=== PATIENT | female | born 1935 | race Caucasian/White ===

== ENCOUNTER 2020-08-25 11:22 | Day surgery (SDC) | payer MEDICARE, SELFPAY ==
[2020-08-25] VITALS (9 sets, daily range): BP systolic 133–166; BP diastolic 86–99; PULSE 83–114; RESP 12–22; TEMP 35.8–36.3; O2SAT 92–100; BMI 20.7
--- NOTE | 2020-08-25 11:58 | WPDANESEPPF ---
Anes - Initial Pre Proc Eval Procedure: Operation Date: 08/25/20 12:00 Proposed Procedures p Left Endoscopic Nasal Cauterization - Mehrdad Lock MD Date/Time: 08/25/20 11:58 Surgeon: Mehrdad Lock MD Pre Op Diagnosis: Epistaxis Patient Data Age: 85 Gender: F Height: 5 ft 9 in Weight: 63.7 kg Allergies Allergy/AdvReac Type Severity Reaction Status Date / Time No Known Allergies Allergy Verified 08/25/20 11:36 Home Medications Medication Instructions Recorded Confirmed Type aspirin 81 mg tablet,delayed 81 mg PO DAILY 08/21/20 08/25/20 History release calcium carbonate 500 mg calcium 500 mg PO DAILY 08/21/20 08/25/20 History (1,250 mg) chewable tablet cholecalciferol (vitamin D3) 125 125 mcg PO DAILY 08/21/20 08/25/20 History mcg (5,000 unit) capsule methenamine hippurate 1 gram tablet 1 gm PO BID 08/21/20 08/25/20 History metoprolol succinate 200 mg 200 mg PO DAILY 08/21/20 08/25/20 History capsule sprinkle, ext. release 24 hr warfarin 3 mg tablet 3 mg PO QMWF 08/21/20 08/25/20 History Patient hx anesthesia problems: none Family hx anesthesia problems: none PMFSH Past Medical History Medical History (Updated 08/25/20 @ 11:59 by Giorgi Dunne MD) Breast cancer Chronic a-fib Epistaxis Mitral valve regurgitation Pacemaker Surgical History Surgical History (Updated 08/25/20 @ 12:00 by Giorgi Dunne MD) H/O left mastectomy History of mitral valve repair Family History Family History Other Malignant neoplasm of prostate Social History Social History Smoking status: Never smoker Anes - Eval Final PreProcedure Day of Procedure 08/25/20 11:58 Patient weight: normal Heart: regular rate and rhythm Lungs: clear to auscultation Airway: Mallampati scale class II Neurological: alert and oriented Last oral intake: 4 hours ASA classification: III Emergent: yes Anesthetic plan: proceed Anesthesia type and monitoring: general ETT and standard monitoring Informed Consent: The patient's anesthetic plan and its attendant risks and benefits were discussed with the patient/family/POA. Questions were solicited and answers provided to the satisfaction of the patient/family/POA.
[2020-08-25 12:09] LABS: Hematocrit 45.6 % (37.0-47.0)
[2020-08-25 12:19] LABS: Prothrombin Time 30.2 Seconds (11.1-14.7)
[2020-08-25 12:20] LABS: Partial Thromboplastin Time 43.2 SECONDS (22.3-36.8)
--- NOTE | 2020-08-25 12:21 | PM.IMHP ---
H&P: HPI History of Present Illness Date/Time: 08/25/20 12:21 Chief complaint: Epistaxis Narrative: Federica Rico is a 85 year old female on coumadin with a history of epistaxis. Unable to control the bleeding in the clinic. The patient presents for operative intervention. Review of Systems Review of Systems: All systems reviewed & are unremarkable except as noted in HPI and below Constitutional: Constitutional: Denies fatigue, Denies fever(s) and Denies lethargy Eyes: Eyes: Denies blurry vision and Denies change in vision ENT: Reports as per HPI Cardiovascular: Cardiovascular: Denies chest pain Respiratory: Respiratory: Denies cough Endocrine: Endocrine: Denies fatigue Hematologic/Lymphatic: Hematologic/Lymphatic: Reports easy bleeding, Reports easy bruising and Denies lymphadenopathy Allergic/Immunologic: Allergic/Immunologic: Denies seasonal rhinorrhea PMF Past Medical History Medical History (Updated 08/25/20 @ 12:22 by Mehrdad Lock MD) Breast cancer Chronic a-fib Epistaxis Mitral valve regurgitation Pacemaker Surgical History Surgical History (Updated 08/25/20 @ 12:00 by Giorgi Dunne MD) H/O left mastectomy History of mitral valve repair Family History Family History Other Malignant neoplasm of prostate Social History Social History Smoking status: Never smoker Meds Home Medications and Allergies Home Medications Medication Instructions Recorded Confirmed Type aspirin 81 mg tablet,delayed 81 mg PO DAILY 08/21/20 08/25/20 History release calcium carbonate 500 mg calcium 500 mg PO DAILY 08/21/20 08/25/20 History (1,250 mg) chewable tablet cholecalciferol (vitamin D3) 125 125 mcg PO DAILY 08/21/20 08/25/20 History mcg (5,000 unit) capsule methenamine hippurate 1 gram tablet 1 gm PO BID 08/21/20 08/25/20 History metoprolol succinate 200 mg 200 mg PO DAILY 08/21/20 08/25/20 History capsule sprinkle, ext. release 24 hr warfarin 3 mg tablet 3 mg PO QMWF 08/21/20 08/25/20 History Allergies Allergy/AdvReac Type Severity Reaction Status Date / Time No Known Allergies Allergy Verified 08/25/20 11:36 Vital Signs Vital Signs - 24 hr 08/25/20 12:11 Temperature 35.8 C L Pulse Rate 83 Respiratory Rate 18 Blood Pressure 161/91 H Pulse Oximetry 92 Exam Const: General: cooperative, healthy appearing, comfortable, well developed and alert HENMT: Head: normal to inspection, normocephalic and atraumatic Ears: hearing grossly normal bilaterally, external ears normal, TM's normal bilaterally and EAC's normal General nose exam: Normal external nose present, Normal nares present and Other nasal findings present (Significant left sided epistaxis) Face and sinus: normal facial exam Mouth: Yes Normal oral and palatal mucosa present, Yes lip normal, Yes tongue normal, Yes oropharynx normal and Yes moist mucous membranes Teeth and gingiva: dentition normal and gingiva normal Throat: posterior oropharynx normal, tonsils normal and uvula midline Eyes: General: appearance normal, both eyes and all related structures Periorbital: periorbital findings normal Eyelids: eyelids normal Conjunctivae: conjunctivae normal Sclera: sclerae normal Neck: Neck: normal visual inspection, full ROM and no lymphadenopathy Thyroid: thyroid normal Lymphatic: no lymphadenopathy noted Resp: Effort & Inspection: normal respiratory effort and able to speak in complete sentences Cardio: Jugular venous distension: no JVD Neuro: Cranial nerves: Yes CN's II-XII intact bilaterally H&P: Results Labs Labs: Short CBC 08/25/20 Range/Units 12:04 Hgb 15.0 (12.0-15.0) g/dL Hct 45.6 (37.0-47.0) % Assessment and Plan Assessment and plan (1) Epistaxis: Code(s): R04.0 - Epistaxis Status: Acute Assessment and Plan: Plan is for OR
--- NOTE | 2020-08-25 12:23 | WPDHPUPDATE1 ---
History and Physical Update Update Date/Time: 08/25/20 12:23 History and Physical has been reviewed, including an updated exam of the patient. There are NO changes in the patient's condition. Risks, benefits, and alternatives have been discussed and questions answered. Patient agrees to proceed with procedure.
[2020-08-25] MEDS: LACTATED RINGERS 1,000 ML 30 ML IV CONT ×2 (12:25→13:59)
[2020-08-25] MEDS: OXYMETAZOLINE HCL 0.05% NAS 15 ML BTL (*BKC) 1 SPRAY NASAL (12:45)
[2020-08-25] MEDS: fentaNYL CITRATE INJ (*CRX) 100 MCG/2 ML VIAL 25 MCG IV PUSH (14:04)
--- NOTE | 2020-08-25 14:16 | PM.PROC ---
Procedure Note - Detailed Date of procedure: 08/25/20 Pre-op diagnosis: Epistaxis Post-op diagnosis: same Procedure performed: 1. Control of left anterior septal epistaxis 2. Left endoscopic maxillary antrostomy 3. Left endoscopic sphenopalatine artery ligation Description of procedure: The patient is correctly identified and consent was verified in the preoperative. Patient was then brought to operating room performed. General anesthesia was induced and endotracheal tube secured to the patient's airway and taped to the left lower lip. The patient was then prepped and draped for the aforementioned procedure. Nasal endoscopy was performed following the removal of the left-sided rhino rocket with no active bleeding noted. A Clayton was utilized to medialized the left middle turbinate and double ball tip probe was placed behind the uncinate process and used to fracture it anteriorly. Backbiter to the right was then utilized to perform uncinectomy. A straight through cup was utilized to widen the maxillary antrostomy into the posterior fontanelle and wall were located. A Clayton was then used to dissect until the Nithya ethmoidalis was identified. Bleeding obscured direct visualization of the sphenopalatine artery at this region was cauterized with the suction Bovie at a setting of 20. The left anterior septum was also cauterized with suction Bovie a setting of 10. Mucosal bleeding was noted following the procedure but no active arterial bleeding from the left anterior nasal septum or left sphenopalatine region was noted. Gelfoam was placed against the sphenoid palatine region. Blood was suctioned and the patient's stomach was suctioned as well. Rhino rocket was placed to be deflated and this marked the end of the procedure. Care of the patient was turned over to Anesthesiology. I performed all dictated portions of the procedure. Anesthesia: GLMA Surgeon: Mehrdad Lock MD Estimated blood loss (mL): 25 Complications: No immediate complications Condition: stable Disposition: PACU Findings: relatively controlled epistaxis cauterized anterior left nasal septum sphenopalatine artery region significantly cauterized
== END 2020-08-25 16:00 | disposition home or self-care (01) ==
PROVIDERS: Anesthesiology; PCP Internal Medicine; Visit Provider Otolaryngology
PROC: (CPT 31256; principal; 2020-08-25 12:00)
DX: R04.0 Epistaxis (principal); I48.20 Chronic atrial fibrillation, unspecified; I34.0 Nonrheumatic mitral (valve) insufficiency; Z95.0 Presence of cardiac pacemaker; Z85.3 Personal history of malignant neoplasm of breast; Z79.82 Long term (current) use of aspirin; Z79.01 Long term (current) use of anticoagulants
CPT/HCPCS: 31256; 31241; 36415; 85014; 85018; 85610; 85730; A9270; J0330; J2704; J3010; J7120

== ENCOUNTER 2021-04-11 13:16 | Outpatient (CLI) | payer MEDICARE, SELFPAY ==
--- NOTE | ~2021-04-11 | MM_ITS ---
EXAMINATION: MM screening [facility] BI w mehrdad HISTORY: Screening TECHNIQUE: Craniocaudal and mediolateral oblique 3-D tomosynthesis images were obtained and synthetic 2-D images were generated. CAD analysis was submitted and interpreted. COMPARISON: Comparison to multiple prior studies sequentially, with oldest reviewed study dated 05/14. BREAST PARENCHYMAL COMPOSITION: The breasts are extremely dense, which lowers the sensitivity of mamm ography. FINDINGS: Postsurgical changes are present consistent with previous left mastectomy with TRAM flap re construction. There is no evidence of suspicious mass, calcification, or architectural distortion to suggest malignancy in either breast. There has been no suspicious interval change. IMPRESSION: 1. No mammographic evidence of malignancy. 2. Recommend routine screening mammography in one year. BI-RADS Category 2: Benign finding(s). Reviewed, dictated and finalized at location A.
== END 2021-04-11 13:17 | disposition home or self-care (01) ==
LOC: ANHIMG 13:19
PROVIDERS: PCP Internal Medicine; Visit Provider Internal Medicine
DX: Z12.31 Encounter for screening mammogram for malignant neoplasm of breast (principal)
CPT/HCPCS: 77063; 77067

== ENCOUNTER 2021-05-02 09:51 | Inpatient (IN) | payer MEDICARE, SELFPAY ==
[2021-05-02] VITALS (11 sets, daily range): BP systolic 121–149; BP diastolic 60–86; PULSE 68–102; RESP 14–18; TEMP 36.2–36.8; O2SAT 95–100; BMI 21.2
--- NOTE | ~2021-05-02 | CT_ITS ---
EXAMINATION: CT abdomen pelvis w con EXAM DATE: 05/02/2021 11:46 INDICATION: Hematochezia, diarrhea. Dizziness. TECHNIQUE: Spiral CT of the abdomen and pelvis was performed following intravenous injection of 100 m L Omnipaque 350. Axial, coronal and sagittal images of the abdomen and pelvis were reviewed. The do se-length product (DLP) for this examination was 286.41 mGy-cm. The exposure was tailored according to patient size (auto mA exposure control), and iterative reconstruction (ASIR) was used as additiona l dose reduction technique. Comparison is made to prior examination from 11/19/2016. FINDINGS: Site of active bleeding is identified 5 cm proximal to the terminal ileum/cecal junction, w ith blood/contrast pooling in a diverticulum in the dependent aspect of the terminal ileum. Finding h as been indicated on axial image 108/174. Fluid within the colon probably blood. No small bowel dilat ion. Right-sided cardiac enlargement, severely distended right atrium. Right intraventricular pacemaker. T he IVC is dilated and there is mildly heterogeneous liver enhancement which could be from passive cyndee ous congestion due to right heart failure. There is 1.5 cm right liver dome cyst. The liver, spleen, adrenal glands and pancreas are unremarkable. Gallbladder is unremarkable. No biliary obstruction. Right kidney has horizontal orientation with patulous extrarenal pelvis and mild caliectasis, but no hydroureter or obstructing stones. Kidneys enhance symmetrically. No evidence of soft tissue at the r ight ureteropelvic junction to explain this. There is a left renal 1.4 cm cyst. The uterus is not id entified and has likely been surgically resected. 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 The bladder is unremarkable. There i s no retroperitoneal or pelvic lymphadenopathy. There is mild to moderate scattered arterioscleroti c disease. The appendix is normal. There is mild scattered colonic diverticulosis. There is no adjacent inflamm atory change to suggest diverticulitis. There is a 5 cm diverticulum along the jejunum proximally. No free intraperitoneal gas. The lung bases are unremarkable. Old right superior and inferior rami fractures. There are no osteoblastic or osteolytic lesions identified. IMPRESSION: 1. Terminal ileal active bleeding site identified. Diffuse colonic fluid, blood/diarrhea. 2. Distended right renal pelvis and mild caliectasis without obstructing etiology identified. 3. 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 4. Right-sided predominant cardiomegaly. Intraventricular pacer in position. 5. Heterogeneous liver enhancement probably passive congestion from right heart failure. 6. Scattered colonic, small bowel diverticulosis. Reviewed, dictated and finalized at location A. IMPRESSION: 1. Terminal ileal active bleeding site identified. Diffuse colonic fluid, bloo d/diarrhea. 2. Distended right renal pelvis and mild caliectasis without obstructing etiol ogy identified. 3. 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 4. Right-sided predominant cardiomegaly. Intraventricular pacer in position. 5. Heterogeneous liver enhancement probably passive congestion from right hear t failure. 6. Scattered colonic, small bowel diverticulosis.
--- NOTE | 2021-05-02 10:19 | PC.NURSE ---
placed in wheelchair, advised not to stand or ambulate without assistance.
[2021-05-02 10:39] LABS: Basophils Percent Auto 0.5 % (0.2-1.2); Eosinophils Absolute Auto 0.1 K/mm3 (0-0.3); Eosinophils Percent Auto 1.7 % (0-4.4); Hematocrit 40.6 % (37.0-47.0); Immature Granulocyte Absolute 0.02 K/mm3 (0.00-0.031); Immature Granulocyte Percent A 0.3 % (0-0.5); Lymphocytes Absolute Auto 1.17 K/mm3 (0.9-3.2); Lymphocytes Percent Auto 19.8 % (18.3-44.2); Mean Corpuscular Hemoglobin 29.5 pg (26-34); Mean Corpuscular Volume 92.3 fl (80-100); Mean Platelet Volume 9.2 fl (7.4-10.4); Monocytes Absolute Auto 0.4 K/mm3 (0.1-0.6); Monocytes Percent Auto 5.9 % (2.6-8.5); Neutrophils Absolute Auto 4.3 K/mm3 (1.3-6.7); Neutrophils Percent Auto 71.8 % (45.5-73.1); Platelet Count Result 214 k/mm3 (150-375); Red Cell Distribution Width 14.3 % (11.5-14.5); White Blood Count 5.9 K/mm3 (4.5-10.0)
[2021-05-02 10:49] LABS: Alanine Aminotransferase 12 U/L (4-35); Albumin Level 3.8 g/dL (3.5-5.1); Alkaline Phosphatase 78 U/L (38-126); Anion Gap 8 mmol/L (8-16); Aspartate Amino Transferase 24 U/L (14-36); Bilirubin,Total 0.7 mg/dL (0.2-1.3); Blood Urea Nitrogen 18 mg/dL (7-17); Calcium 8.6 mg/dL (8.4-10.2); Carbon Dioxide 26 mmol/L (22-30); Chloride 107 mmol/L (98-107); Estimated CRCL calculation 52 ml/min; Estimated Glomerular Filt Rate > 60; Glucose 115 mg/dL (65-105); INR 2.4; Potassium 4.3 mmol/L (3.4-5.0); Prothrombin Time 26.6 Seconds (11.1-14.7); Sodium 141 mmol/L (137-145)
[2021-05-02 10:50] LABS: Partial Thromboplastin Time 28.1 SECONDS (22.3-36.8)
--- NOTE | 2021-05-02 11:01 | ED.GIBLEED ---
HPI - GI Bleed General Chief complaint: GI Bleed Stated complaint: rectal bleeding Time Seen by Provider: 05/02/21 10:37 Source: patient Mode of arrival: wheelchair Limitations: no limitations History of Present Illness HPI Narrative: Patient presents to the emergency department for GI bleed present since this morning. Reports she woke up and felt like she needed to have a loose bowel movement. Noted dark red blood in her stool. Reports this happened 2 more times so she called her primary doctor who told her to come to the ER. Does report some abdominal discomfort. She is currently on warfarin. She did have to increase her dose a couple of days ago as she was subtherapeutic. Is back on her normal dose again. Denies fever, chest pain, shortness of breath, vomiting, dysuria, or hematuria. Related Data Home Medications Medication Instructions Recorded Confirmed aspirin 81 mg tablet,delayed 81 mg PO DAILY 08/21/20 08/25/20 release calcium carbonate 500 mg calcium 500 mg PO DAILY 08/21/20 08/25/20 (1,250 mg) chewable tablet cholecalciferol (vitamin D3) 125 125 mcg PO DAILY 08/21/20 08/25/20 mcg (5,000 unit) capsule methenamine hippurate 1 gram tablet 1 gm PO BID 08/21/20 08/25/20 metoprolol succinate 200 mg 200 mg PO DAILY 08/21/20 08/25/20 capsule sprinkle, ext. release 24 hr warfarin 05/02/21 Allergies Allergy/AdvReac Type Severity Reaction Status Date / Time No Known Allergies Allergy Verified 01/31/21 13:56 Review of Systems Review of Systems: Narrative: CONSTITUTIONAL: Denies fever. CARDIOVASCULAR: Denies chest pain RESPIRATORY: Denies dyspnea. GASTROINTESTINAL: Reports abdominal pain, diarrhea. Denies nausea or vomiting. GENITOURINARY: Denies dysuria or hematuria. All systems reviewed & are unremarkable except as noted in HPI and below PMFSH Past Medical History Medical History (Updated 05/02/21 @ 14:21 by Lynne Pillai PA-C) Breast cancer Chronic a-fib Epistaxis Mitral valve regurgitation Pacemaker Surgical History Surgical History (Updated 08/25/20 @ 12:00 by Giorgi Dunne MD) H/O left mastectomy History of mitral valve repair Family History Family History Other Malignant neoplasm of prostate Social History Social History (Updated 09/18/20 @ 13:13 by Rosette Villaseñor [employer]GER) Smoking status: Never smoker Second hand tobacco smoke exposure: No Alcohol intake: current Drinks per week: 3 Substance use: never Exam Narrative: Exam Narrative: GENERAL: Elderly, well-nourished, and in no acute distress. HEAD: Normocephalic, atraumatic. EYES: EOMI. CHEST: Clear to auscultation. No respiratory distress. No wheezes rales or rhonchi HEART: Regular rate and rhythm. No murmur heard. Normal peripheral pulses. ABDOMEN: Soft, nontender, nondistended, normal active bowel sounds. No CVA tenderness EXTREMITIES: Normal range of motion. No edema. SKIN: Warm, dry, no rash. NEURO: No focal deficits. Alert and oriented x3. PSYCH: Normal mood and affect RECTAL: Gross dark red blood in the rectum. No fissures or hemorrhoids are noted Course Consultations Consultation #1: Spoke with Dr. Abdi about patient and work-up who will consult. Would like patient's INR to be closer to 1.6 for colonoscopy. Date: 05/02/21 Time: 13:20 Consultation #2: Spoke with hospitalist about patient and work-up who accepts admission Date: 05/02/21 Time: 13:30 Vital Signs Vital signs: Vital Signs Temperature 97.2 F L 05/02/21 10:10 Pulse Rate 92 05/02/21 10:10 Respiratory Rate 14 05/02/21 10:10 Blood Pressure 144/75 H 05/02/21 10:10 Pulse Oximetry 98 05/02/21 10:10 Temperature 97.2 F L 05/02/21 10:10 Pulse Rate 100 05/02/21 13:55 Respiratory Rate 16 05/02/21 13:55 Blood Pressure 135/78 05/02/21 13:55 Pulse Oximetry 100 05/02/21 13:55 MDM - GI Bleed MDM Narrative Medical decision
[2021-05-02] MEDS: PHYTONADIONE ADULT INJ 10 MG in DEXTROSE 5% IN WATER 50 ML 100 MG IVPB (12:54)
--- NOTE | 2021-05-02 15:13 | ADMGEN ---
This patient, Federica Rico, was admitted to Medical Room 349-01. Patient/family oriented to hospital policies and general routines including ID bracelet, bed and alarms, visiting hours, pain management, procedures, bathroom and other care routines, personal items, smoking policy, room service/diet, and visiting hours. Information on how to activate the Rapid Response Team has been discussed. Patient/Family are encouraged to report perceived risks to care and to ask questions if they do not understand what they are told or what they should do.
--- NOTE | 2021-05-02 16:22 | WPDGICN ---
Assessment and Plan Assessment and plan (1) Acute GI bleeding: Code(s): K92.2 - Gastrointestinal hemorrhage, unspecified Status: Acute Assessment and Plan: will proceed with egd and colonoscopy (described some dark blood ? melena but also clots) therapeutic INR corrected with vit K, repeat again in the morning (2) Rectal bleeding: Code(s): K62.5 - Hemorrhage of anus and rectum Status: Acute (3) Chronic anticoagulation: Code(s): Z79.01 - correction (current) use of anticoagulants Status: Acute Assessment and Plan: coumadin on hold and given vit K ideally INR ~1.7 or less (4) Chronic a-fib: Code(s): I48.20 - Chronic atrial fibrillation, unspecified Status: Acute (5) Abnormal CT scan, colon: Code(s): R93.3 - Abnormal findings on diagnostic imaging of other parts of digestive tract Status: Acute Assessment and Plan: ? bleeding from right colon/TI scopes tomorrow monitor for more signs of bleeding and trend h/h GI Consult Note Consult date/time: 05/02/21 16:22 Reason for consult: rectal bleeding HPI: Federica Rico is a 85 year old female with chronic Afib for over 20 years, valve replacement (used to be on xarelto but last 2 years on coumadin), s/p pacemaker here with new onset of dark blood in stool x3 (large amount per patient), last time also noted clots. Had some mild lower abdominal cramping but no nausea or vomiting. She had her last colonoscopy about 7 years with polyp, it was done in [place]. INR 2.4, hb 13, bun 17, creat 0.7. CT scan reviewed and showed terminal ileal active bleeding site identified, right-sided predominant cardiomegaly. Intraventricular pacer in position, heterogeneous liver enhancement probably passive congestion from right heart failure, scattered colonic, small bowel diverticulosis. She is hemodynamically stable and received vit K in the ER. Her son is here. Review of Systems Constitutional: Constitutional: Denies chills Eyes: Eyes: Reports no additional eye complaints ENT: Reports Normal hearing present Cardiovascular: Cardiovascular: Denies chest pain Respiratory: Respiratory: Denies cough Gastrointestinal: Gastrointestinal: Denies nausea Genitourinary: Genitourinary: Denies hematuria Musculoskeletal: Musculoskeletal: Denies neck pain Integumentary/Breasts: Skin/Breast: Denies dry skin Neurologic: Denies headache(s) Psychiatric: Psychiatric: Denies behavioral changes [facility] Past Medical History Medical History (Updated 05/02/21 @ 16:27 by Abdirashid Abdi MD) Abnormal CT scan, colon Breast cancer Chronic a-fib Epistaxis Mitral valve regurgitation Pacemaker Rectal bleeding Surgical History Surgical History (Updated 08/25/20 @ 12:00 by Giorgi Dunne MD) H/O left mastectomy History of mitral valve repair Family History Family History (Updated 05/02/21 @ 16:04 by Kelin aKt RN) Father Malignant neoplasm of prostate Mother Aneurysm Other Breast cancer Social History Social History (Updated 09/18/20 @ 13:13 by Rosette Villaseñor CMA) Smoking status: Never smoker Second hand tobacco smoke exposure: No Alcohol intake: current Drinks per week: 1 Substance use: never Spiritual care concerns: No Meds Home Medications and Allergies Home Medications Medication Instructions Recorded Confirmed Type aspirin 81 mg tablet,delayed 81 mg PO DAILY 08/21/20 05/02/21 History release cholecalciferol (vitamin D3) 125 125 mcg PO DAILY 08/21/20 05/02/21 History mcg (5,000 unit) capsule methenamine hippurate 1 gram tablet 1 gm PO BID 08/21/20 05/02/21 History metoprolol succinate 200 mg 200 mg PO DAILY 08/21/20 05/02/21 History capsule sprinkle, ext. release 24 hr warfarin 3 mg PO USEASDIRECTD 05/02/21 05/02/21 History Allergies Allergy/AdvReac Type Severity Reaction Status Date / Time No Known Allergies Allergy Verified
[2021-05-02 16:35] LABS: Hematocrit 33.9 % (37.0-47.0)
--- NOTE | 2021-05-02 16:39 | PM.IMHP ---
H&P: HPI History of Present Illness Date/Time: 05/02/21 16:39Mariajose is a 85-year-old female patient who resides with her at [facility]. The patient has a history of atrial fibrillation and has been on Coumadin. Her INR was listed as 2.4. The patient came to the emergency room due to bright red rectal bleeding. She woke up this morning and she felt like she was could have loose stool. The patient has had continue with his liquid stools until she came to the hospital. However she did quantify that she had at least 6 watery stools that were dark black to Karen colored. She said that she had a colonoscopy many years ago maybe 7 years ago and she did have some polyps removed at that time. She had no abdominal discomfort she is wearing a depends at this time and there is Karen colored dark stool in her depends. GI has been consulted has already seen the patient. The CT is read as following 1.. Terminal ileal active bleeding site identified. Diffuse colonic fluid, blood/diarrhea. 2. Distended right renal pelvis and mild caliectasis without obstructing etiology identified. 3. 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 4. Right-sided predominant cardiomegaly. Intraventricular pacer in position. 5. Heterogeneous liver enhancement probably passive congestion from right heart failure. 6. Scattered colonic, small bowel diverticulosis. the patient did not give a urine sample as she has been on an antiseptic for frequent UTIs. She feels as though her urine would be positive but does not want to be treated live she has symptoms. Her urologist order not to continue to use antibiotics unless she is having symptoms. She is concerned about any super infections due to chronic antibiotic use. The patient stated that her urologist took 3 years to get her urine cleared and does not want to take any antibiotics if her urine shows something today. She is asymptomatic. The patient had vitamin K in the emergency room and it looks like maybe IV vitamin K as well. The patient is being admitted to observation status on 05/02/2021. Chief Complaint: gi bleed Review of Systems Review of Systems: All systems reviewed & are unremarkable except as noted in HPI and below Constitutional: Constitutional: Reports as per HPI and Reports no additional constitutional complaints Eyes: Eyes: Reports as per HPI and Reports no additional eye complaints ENT: Reports system reviewed and no additional complaints, except as documented and Reports Normal hearing present Cardiovascular: Cardiovascular: Reports no additional cardiovascular complaints Respiratory: Respiratory: Reports no additional respiratory complaints and Reports no additional respiratory complaints Gastrointestinal: Gastrointestinal: Reports as per HPI and Reports no additional gastrointestinal complaints Musculoskeletal: Musculoskeletal: Reports no additional musculoskeletal complaints Integumentary/Breasts: Skin/Breast: Reports system reviewed and no additional complaints, except as docu and Reports as per HPI Neurologic: Reports system reviewed and no additional complaints, except as documented, Reports as per HPI and Reports Normal hearing present Psychiatric: Psychiatric: Reports no additional psychiatric complaints and Reports as per HPI Endocrine: Endocrine: Reports no additional endocrine complaints Hematologic/Lymphatic: Hematologic/Lymphatic: Reports no additional hematologic/lymphatic complaints Allergic/Immunologic: Allergic/Immunologic: Reports no additional allergic/immunologic complaints [facility] Past Medical History Medical History (Updated 05/02/21 @ 16:49 by Nolvia Dupree NP) Abnormal CT scan, colon Breast cancer Chronic a-fib Epistaxis Mitral valve regurgitation Osteoporosis Pacemaker Rectal bleeding Surgical History Surgical History (Updated 05/02/21 @ 16:49 by Nolvia Dupree NP) H/O left mastectomy H/O: hysterectomy Hi
[2021-05-02] MEDS: polyethylene glycoL 3350 238 GM BOTTLE PO (17:28)
[2021-05-02] MEDS: BISACODYL 5 MG TABLET EC 20 MG PO (17:33)
--- NOTE | 2021-05-02 18:34 | PHAR ---
Home medication seen in pharmacy and returned to [facility]med unit. Methenamine 1gm tablets
[2021-05-02 19:39] LABS: INR 1.7; Prothrombin Time 20.1 Seconds (11.1-14.7)
[2021-05-02 22:23] LABS: Hematocrit 31.9 % (37.0-47.0); Hemoglobin 10.1 g/dL (12.0-15.0)
[2021-05-03] VITALS (15 sets, daily range): BP systolic 95–125; BP diastolic 49–65; PULSE 74–109; RESP 14–29; TEMP 36.4–36.9; O2SAT 96–100
[2021-05-03] MEDS: ONDANSETRON INJ 4 MG/2 ML VIAL IV PUSH (00:08)
[2021-05-03] MEDS: MAGNESIUM CITRATE 300 ML BTL PO (04:45)
[2021-05-03 05:35] LABS: Hematocrit 27.9 % (37.0-47.0); Hemoglobin 9.1 g/dL (12.0-15.0)
[2021-05-03 05:46] LABS: INR 1.2; Prothrombin Time 15.9 Seconds (11.1-14.7)
[2021-05-03 05:48] LABS: Anion Gap 5 mmol/L (8-16); Blood Urea Nitrogen 13 mg/dL (7-17); Calcium 7.8 mg/dL (8.4-10.2); Carbon Dioxide 24 mmol/L (22-30); Chloride 111 mmol/L (98-107); Estimated CRCL calculation 61 ml/min; Estimated Glomerular Filt Rate > 60; Glucose 106 mg/dL (65-105); Magnesium 1.9 mg/dL (1.6-2.3); Potassium 3.6 mmol/L (3.4-5.0); Sodium 140 mmol/L (137-145)
[2021-05-03 05:52] LABS: Lactic Acid Reflex 0.7 mmol/L (0.7-2.1)
--- NOTE | 2021-05-03 08:07 | WPDANESEPP ---
Anes - Eval Pre Procedure Procedure: Operation Date: 05/03/21 11:45 Proposed Procedures p Esophagogastroduodenoscopy & Colonoscopy - Abdirashid Abdi MD Date/Time: 05/03/21 08:07 Pre Op Diagnosis: gi bleed Patient Data Age: 85 Gender: F Height: 5 ft 9 in Weight: 65.1 kg Last Vital Signs Temp 98.5 F 05/03/21 05:58 Pulse 88 05/03/21 05:58 Resp 14 05/03/21 05:58 BP 104/57 L 05/03/21 05:58 Pulse Ox 98 05/03/21 05:58 Allergies Allergy/AdvReac Type Severity Reaction Status Date / Time No Known Allergies Allergy Verified 05/02/21 16:12 Home Medications Medication Instructions Recorded Confirmed Type aspirin 81 mg tablet,delayed 81 mg PO DAILY 08/21/20 05/02/21 History release cholecalciferol (vitamin D3) 125 125 mcg PO DAILY 08/21/20 05/02/21 History mcg (5,000 unit) capsule methenamine hippurate 1 gram tablet 1 gm PO BID 08/21/20 05/02/21 History metoprolol succinate 200 mg 200 mg PO DAILY 08/21/20 05/02/21 History capsule sprinkle, ext. release 24 hr warfarin 3 mg PO USEASDIRECTD 05/02/21 05/02/21 History Laboratory Tests 05/02/21 05/02/21 05/02/21 10:30 10:30 10:30 WBC 5.9 K/mm3 K/mm3 (4.5-10.0) RBC 4.40 M/mm3 M/mm3 (4.2-5.4) Hgb 13.0 g/dL g/dL (12.0-15.0) Hct 40.6 % % (37.0-47.0) MCV 92.3 fl fl (80-100) MCH 29.5 pg pg (26-34) MCHC 32.0 g/dl g/dl (32-36) RDW 14.3 % % (11.5-14.5) Plt Count 214 k/mm3 k/mm3 (150-375) MPV 9.2 fl fl (7.4-10.4) Immature Gran % (Auto) 0.3 % % (0-0.5) Neut % (Auto) 71.8 % % (45.5-73.1) Lymph % (Auto) 19.8 % % (18.3-44.2) Barron % (Auto) 5.9 % % (2.6-8.5) Eos % (Auto) 1.7 % % (0-4.4) Baso % (Auto) 0.5 % % (0.2-1.2) Lymph # (Auto) 1.17 K/mm3 K/mm3 (0.9-3.2) Barron # (Auto) 0.4 K/mm3 K/mm3 (0.1-0.6) Eos # (Auto) 0.1 K/mm3 K/mm3 (0-0.3) Baso # (Auto) 0.0 K/mm3 K/mm3 (0.0-0.1) Abs Immat Gran (auto) 0.02 K/mm3 K/mm3 (0.00-0.031) Absolute Neuts (auto) 4.3 K/mm3 K/mm3 (1.3-6.7) Absolute Nucleated RBC 0.0 K/mm3 K/mm3 (0.0-0.012) Nucleated RBC % 0.0 % % (0.0-0.2) PT 26.6 Seconds H Seconds (11.1-14.7) INR 2.4 APTT 28.1 SECONDS SECONDS (22.3-36.8) Sodium 141 mmol/L mmol/L (137-145) Potassium 4.3 mmol/L mmol/L (3.4-5.0) Chloride 107 mmol/L mmol/L (98-107) Carbon Dioxide 26 mmol/L mmol/L (22-30) Anion Gap 8 mmol/L mmol/L (8-16) BUN 18 mg/dL H mg/dL (7-17) Creatinine 0.70 mg/dL mg/dL (0.7-1.0) Estim Creat Clear Calc 52 ml/min ml/min Estimated GFR > 60 (59 - ) Glucose 115 mg/dL H mg/dL (65-105) Lactic Acid Calcium 8.6 mg/dL mg/dL (8.4-10.2) Magnesium Total Bilirubin 0.7 mg/dL mg/dL (0.2-1.3) AST 24 U/L U/L (14-36) ALT 12 U/L U/L (4-35) Alkaline Phosphatase 78 U/L U/L (38-126) Total Protein 6.0 g/dL L g/dL (6.3-8.2) Albumin 3.8 g/dL g/dL (3.5-5.1) TSH (Reflex) Blood Type Antibody Screen Antibody Identification Antigen Identification JAVY, IgG Interpret JAVY, Poly Interpret JAVY, Complement Interp 05/02/21 05/02/21 05/02/21 10:30 16:28 19:14 WBC RBC Hgb 11.0 g/dL L g/dL (12.0-15.0) Hct 33.9 % L % (37.0-47.0) MCV MCH MCHC RDW Plt Count MPV Immature Gran % (Auto) Neut % (Auto) Lymph % (Auto) Barron % (Auto) Eos % (Auto) Baso % (Au
--- NOTE | 2021-05-03 08:10 | ECG_ITS ---
Measurements Intervals Bern Rate: 102 P: MN: 0 QRS: -36 QRSD: 98 T: 74 QT: 361 QTc: 471 Interpretive Statements ATRIAL FIBRILLATION WITH RAPID VENTRICULAR RESPONSE LEFT AXIS DEVIATION INCOMPLETE RIGHT BUNDLE BRANCH BLOCK DELAYED PRECORDIAL R/S TRANSITION BORDERLINE ST-T WAVE ABNORMALITY- HIGH LATERAL LEADS ABNORMAL ECG Electronically Signed On 05-03-2021 8:42:03 CDT by Fabrice Suh D.O.
[2021-05-03] MEDS: METOPROLOL SUCCINATE EXT REL 100 MG TABCR 200 MG PO (08:59)
--- NOTE | 2021-05-03 11:00 | PC.NURSE ---
Pt to GI lab per edita jett at bedside. Report to TAMELA Bassett.
[2021-05-03] MEDS: LACTATED RINGERS 1,000 ML 150 ML IV CONT (11:22)
--- NOTE | 2021-05-03 11:34 | WPDANESEPPF ---
Anes - Initial Pre Proc Eval Procedure: Operation Date: 05/03/21 11:45 Proposed Procedures p Esophagogastroduodenoscopy & Colonoscopy - Abdirashid Abdi MD Date/Time: 05/03/21 11:34 Surgeon: Yuliana Rowley MD Pre Op Diagnosis: gi bleed Patient Data Age: 85 Gender: F Height: 5 ft 9 in Weight: 65.1 kg Last Vital Signs Temp 98.4 F 05/03/21 11:21 Pulse 95 05/03/21 11:21 Resp 16 05/03/21 11:21 BP 106/65 05/03/21 11:21 Pulse Ox 96 05/03/21 11:21 Allergies Allergy/AdvReac Type Severity Reaction Status Date / Time No Known Allergies Allergy Verified 05/03/21 11:05 Home Medications Medication Instructions Recorded Confirmed Type aspirin 81 mg tablet,delayed 81 mg PO DAILY 08/21/20 05/02/21 History release cholecalciferol (vitamin D3) 125 125 mcg PO DAILY 08/21/20 05/02/21 History mcg (5,000 unit) capsule methenamine hippurate 1 gram tablet 1 gm PO BID 08/21/20 05/02/21 History metoprolol succinate 200 mg 200 mg PO DAILY 08/21/20 05/02/21 History capsule sprinkle, ext. release 24 hr warfarin 3 mg PO USEASDIRECTD 05/02/21 05/02/21 History Laboratory Tests 05/02/21 05/02/21 05/02/21 10:30 16:28 19:14 Hgb 11.0 g/dL L g/dL (12.0-15.0) Hct 33.9 % L % (37.0-47.0) PT 20.1 Seconds H D Seconds (11.1-14.7) INR 1.7 Sodium Potassium Chloride Carbon Dioxide Anion Gap BUN Creatinine Estim Creat Clear Calc Estimated GFR Glucose Lactic Acid Calcium Magnesium TSH (Reflex) Blood Type O Positive Antibody Screen Positive Antibody Identification Anti-c Antigen Identification c Antigen - NEGATIVE JAVY, IgG Interpret Not Performed JAVY, Poly Interpret Negative JAVY, Complement Interp Not Performed 05/02/21 05/03/21 05/03/21 22:06 05:22 05:23 Hgb 10.1 g/dL L g/dL 9.1 g/dL L g/dL (12.0-15.0) (12.0-15.0) Hct 31.9 % L % 27.9 % L % (37.0-47.0) (37.0-47.0) PT INR Sodium Potassium Chloride Carbon Dioxide Anion Gap BUN Creatinine Estim Creat Clear Calc Estimated GFR Glucose Lactic Acid 0.7 mmol/L mmol/L (0.7-2.1) Calcium Magnesium TSH (Reflex) Blood Type Antibody Screen Antibody Identification Antigen Identification JAVY, IgG Interpret JAVY, Poly Interpret JAVY, Complement Interp 05/03/21 05/03/21 05/03/21 05:23 05:23 05:23 Hgb Hct PT 15.9 Seconds H D Seconds (11.1-14.7) INR 1.2 Sodium 140 mmol/L mmol/L (137-145) Potassium 3.6 mmol/L mmol/L (3.4-5.0) Chloride 111 mmol/L H mmol/L (98-107) Carbon Dioxide 24 mmol/L mmol/L (22-30) Anion Gap 5 mmol/L L mmol/L (8-16) BUN 13 mg/dL D mg/dL (7-17) Creatinine 0.60 mg/dL L mg/dL (0.7-1.0) Estim Creat Clear Calc 61 ml/min ml/min Estimated GFR > 60 (59 - ) Glucose 106 mg/dL H mg/dL (65-105) Lactic Acid Calcium 7.8 mg/dL L mg/dL (8.4-10.2) Magnesium 1.9 mg/dL mg/dL (1.6-2.3) TSH (Reflex) 1.030 uIU/mL uIU/mL (0.465-4.68) Blood Type Antibody Screen Antibody Identification Antigen Identification JAVY, IgG Interpret JAVY, Poly Interpret JAVY, Complement Interp Patient hx anesthesia problems: none Family hx anesthesia problems: none [facility]
[2021-05-03] MEDS: BENZOCAINE (*SP) 60 ML SPRAY CAN (HURRICAINE) 1 SPRAY MUCOUS MEM (11:54)
--- NOTE | 2021-05-03 12:20 | SUR.OPER ---
Resolution Clip Lot: [id number] Exp: 2023-10-05
--- NOTE | 2021-05-03 13:05 | PC.NURSE ---
Pt returned from GI lab per johnie. Family at bedside.
[2021-05-03] MEDS: CHOLECALCIFEROL 1,000 UNITS TABLET 5000 UNITS PO (13:52)
--- NOTE | 2021-05-03 14:27 | PM.IMPN ---
Progress Note: A&P Assessment and Plan (1) Acute GI bleeding: Code(s): K92.2 - Gastrointestinal hemorrhage, unspecified Status: Acute Assessment and Plan: Presented with dark red blood in stool. CT abdomen/ pelvis at presentation identified site of active bleeding at terminal ileum with suspected colonic blood with scattered diverticulosis. She underwent EGD and colonoscopy today by Dr. Verma. 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 This was clipped. Appreciate gastroenterology consultation advance diet monitor clinically Hold warfarin and aspirin (2) Acute blood loss anemia: Code(s): D62 - Acute posthemorrhagic anemia Status: Acute Assessment and Plan: Secondary to GI bleed as above. Hemoglobin 13.0 at presentation with decline down to 9.1 today but remaining stable. Mild lightheadedness, but otherwise asymptomatic. monitor H&H closely to ensure remaining stable. anticipate improvement as no longer actively bleeding transfuse as needed to stable hemoglobin >7.0 (3) Chronic a-fib: Code(s): I48.20 - Chronic atrial fibrillation, unspecified Status: Acute Assessment and Plan: Rate is controlled. 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 She received vitamin K prior to EGD and colonoscopy and INR was 1.2 this morning. Hold warfarin. Continue to hold for 5 days per GI recommendations. resume on 05/09/2021. (5) Gastritis: Code(s): K29.70 - Gastritis, unspecified, without bleeding Status: Acute Assessment and Plan: Evident on EGD with no evidence of bleeding. Begin daily protonix Subjective Date/time seen: 05/03/21 14:27 Interval history: Date of service: 05/03/2021 Federica Rico is an 85-year-old female with a history of chronic atrial fibrillation on warfarin, mitral valve regurgitation, and breast cancer who is seen in follow-up for GI bleeding. she is feeling fairly well, but does complain of lightheadedness. This has been persistent since presentation. Denies dizziness. She was able to ambulate to the bathroom with assistance without much difficulty. Denies weakness or significant fatigue. She does endorse palpitations which she states is constant for her. she denies shortness of breath. No chest pain. Earlier today she had a cramping abdominal pain, but this has resolved. She has not had any further episodes of bloody stool. She has been urinating without difficulty. She denies nausea, vomiting, fever, or chills. Denies headache or body aches. She has no other concerns at this time. Review of Systems Review of Systems: All systems reviewed & are unremarkable except as noted in HPI and below Exam Narrative: Exam Narrative: Ms Rico is a well-nourished, well-appearing 85-year-old female who is lying semi recumbent in bed. she appears comfortable and is in NARD. Neuro: awake, alert and oriented x4, speech clear, no focal neuro deficits noted HEENMT: normocephalic, atraumatic, EOMI, sclerae anicteric, moist oral mucosa, tongue midline, nares patent Neck: supple, no lymphadenopathy Respiratory: clear to auscultation bilaterally, nonlabored breathing Cardio: regular rate, regular rhythm with S1-S2 Abdomen: nondistended, normoactive bowel sounds, soft, nontender to palpation, no rigidity or guarding Extremities: no edema, erythema, cyanosis, clubbing, or tenderness to palpation, DP pulses 2+ bilaterally Skin: slight pallor, no rashes or lesions, warm and dry Psych: appropriate mood and affect, judgment and insight intact Objective Data Vital Signs Vital Signs: Vital Signs - 24 hr 05/02/21 15:13 05/02/21 15:25 05/02/21 19:55 Temperature 98.2
[2021-05-03 14:50] LABS: Hematocrit 31.3 % (37.0-47.0)
[2021-05-04] VITALS (13 sets, daily range): BP systolic 91–106; BP diastolic 44–62; PULSE 69–98; RESP 18–20; TEMP 36.5–37.2; O2SAT 97–100
[2021-05-04 06:51] LABS: Hematocrit 28.2 % (37.0-47.0)
--- NOTE | 2021-05-04 08:27 | WPDANESPN ---
Anes - Prog Note Post-Op Date/Time: 05/04/21 08:27 Cardiovascular status: normal Respiratory status: normal Airway patency: baseline Mental status: baseline Post-Op hydration status: normal Vital Signs: Last Vital Signs Temp 36.5 C 05/04/21 05:58 Pulse 88 05/04/21 08:02 Resp 18 05/04/21 05:58 BP 106/48 L 05/04/21 05:58 Pulse Ox 100 05/04/21 05:58 Pain Score (VAS): none I/O: Intake & Output 05/03/21 05/04/21 05/04/21 23:59 07:59 15:59 Intake Total 240 250 Balance 240 250 Laboratory Tests 05/04/21 06:40 05/03/21 05:23 05/03/21 05/04/21 14:46 06:40 Hgb 10.0 L 9.0 L Hct 31.3 L 28.2 L Post-procedural complaints: none Patient Feedback: Patient satisfied with anesthetic care.
[2021-05-04] MEDS: PANTOPRAZOLE SOD SESQUIHYDRATE 20 MG TAB PO (08:56)
[2021-05-04] MEDS: METOPROLOL SUCCINATE EXT REL 100 MG TABCR 200 MG PO (08:57)
[2021-05-04] MEDS: CHOLECALCIFEROL 1,000 UNITS TABLET 5000 UNITS PO (08:57)
[2021-05-04 13:01] LABS: Hemoglobin 8.6 g/dL (12.0-15.0)
--- NOTE | 2021-05-04 13:31 | PM.IMPN ---
Progress Note: A&P Assessment and Plan (1) Acute GI bleeding: Code(s): K92.2 - Gastrointestinal hemorrhage, unspecified Status: Acute Assessment and Plan: Presented with dark red blood in stool. CT abdomen/ pelvis at presentation identified site of active bleeding at terminal ileum with suspected colonic blood and scattered diverticulosis. She underwent EGD and colonoscopy by Dr. Verma on 05/03. 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 This was clipped. Still with bleeding per rectum but improving. Appreciate gastroenterology consultation monitor clinically Hold warfarin and aspirin (2) Acute blood loss anemia: Code(s): D62 - Acute posthemorrhagic anemia Status: Acute Assessment and Plan: Secondary to GI bleed as above. Hemoglobin 13.0 at presentation with steady decline. Hgb is 8.6 today. monitor H&H q6h ensure remaining stable. transfuse as needed to stable hemoglobin >7.0 or if symptomatic with further decline (3) Chronic a-fib: Code(s): I48.20 - Chronic atrial fibrillation, unspecified Status: Acute Assessment and Plan: Rate is controlled. Holding metoprolol succinate as BP is soft (4) Chronic anticoagulation: Code(s): Z79.01 - FDC (current) use of anticoagulants Status: Acute Assessment and Plan: On warfarin given chronic AFib. She received vitamin K prior to EGD and colonoscopy and INR was 1.2. Hold warfarin. Continue to hold for 5 days per GI recommendations. resume on 05/09/2021. (5) Gastritis: Code(s): K29.70 - Gastritis, unspecified, without bleeding Status: Acute Assessment and Plan: Evident on EGD with no evidence of bleeding. Begin daily protonix (6) Hypotension: Code(s): I95.9 - Hypotension, unspecified Status: Acute Assessment and Plan: BP down to 93/61 today. Likely secondary to hypovolemia given blood loss. Orthostatics negative. Metoprolol succinate on hold Monitor BP trends closely Fall precautions Subjective Date/time seen: 05/04/21 13:31 Interval history: Date of service: 05/03/2021 Federica Rico is an 85-year-old female with a history of chronic atrial fibrillation on warfarin, mitral valve regurgitation, and breast cancer who is seen in follow-up for GI bleeding. She still feels lightheaded today, especially with getting up and walking around. She is having dark red drips of blood per rectum still but notes this has lessened significantly. She has not had a bowel movement today. Reports mild abdominal cramping. No nausea or vomiting. No fever or chills. No shortness of breath, chest pain, or palpitations. She feels a bit weaker and more fatigued. She has been eating well. Review of Systems Review of Systems: All systems reviewed & are unremarkable except as noted in HPI and below Exam Narrative: Exam Narrative: Ms Rico is a well-nourished, well-appearing 85-year-old female who is lying semi recumbent in bed. She appears comfortable and is in NARD. Neuro: awake, alert and oriented x4, speech clear, no focal neuro deficits noted HEENMT: normocephalic, atraumatic, EOMI, sclerae anicteric, moist oral mucosa Respiratory: clear to auscultation bilaterally, nonlabored breathing Cardio: regular rate, regular rhythm with S1-S2 Abdomen: nondistended, normoactive bowel sounds, soft, nontender to palpation, no rigidity or guarding Extremities: no edema, erythema, cyanosis, clubbing, or tenderness to palpation, DP pulses 2+ bilaterally Skin: slight pallor, no rashes or lesions, warm and dry Psych: appropriate mood and affect, judgment and insight intact Objective Data Vital Signs Vital Signs: Vital Signs - 24 hr 05/03/21 14:00 05/03/21 16:00 05/03/21 20:00 Temperature 98.4 F Pulse Rate 89 74 76 Respiratory Rate 18 17 Blood Pressure 101/53
--- NOTE | 2021-05-04 13:41 | PC.NURSE ---
On 05/04/21, the student, [Becky Miller], provided care and [facility]. I have reviewed the student's documentation and agree with the findings.
--- NOTE | 2021-05-04 14:36 | WPDGIPROGNO ---
Progress Note: A&P Assessment and Plan (1) Diverticular hemorrhage: Code(s): K57.31 - Diverticulosis of large intestine without perforation or abscess with bleeding Status: Acute Assessment and Plan: found stigmata on bleeding from diverticula in ileum, treated with a clip hold coumadin for 1 week (2) Acute blood loss anemia: Code(s): D62 - Acute posthemorrhagic anemia Status: Acute Assessment and Plan: from diverticula bleed repeat cbc as outpatient start iron supplement (3) Gastritis: Code(s): K29.70 - Gastritis, unspecified, without bleeding Status: Acute Assessment and Plan: also noted gastritis, use low dose ppi daily (4) Chronic anticoagulation: Code(s): Z79.01 - residential (current) use of anticoagulants Status: Acute Assessment and Plan: on hold Subjective Date/time seen: 05/04/21 14:36 Interval history: no more bleeding, she is walking with assistance. Review of Systems Review of Systems: All systems reviewed & are unremarkable except as noted in HPI and below Exam Const: General: comfortable and no acute distress HENMT: General nose exam: Normal nares present Eyes: Pupils: Equal, round and reactive pupils present Neck: Neck: supple Resp: Auscultation: clear to auscultation bilaterally Cardio: Rate: regular rate GI: GI Palp: Yes Soft to palpation, No Tenderness to palpation present (GI) and No Guarding due to palpation present (GI) Auscultation: normal bowel sounds Skin: General skin exam: erythema Neuro: Speech: normal speech Motor exam (neuro): Normal motor muscle tone present throughout Extrem: General: normal to inspection Psych: Mental Status: mental status grossly normal Objective Data Vital Signs Vital Signs: Vital Signs - 24 hr 05/03/21 16:00 05/03/21 20:00 05/03/21 21:44 Temperature 97.6 F Pulse Rate 74 76 90 Respiratory Rate 17 17 Blood Pressure 99/51 L Pulse Oximetry 97 97 05/04/21 00:00 05/04/21 04:00 05/04/21 05:58 Temperature 97.7 F Pulse Rate 75 82 93 Respiratory Rate 18 Blood Pressure 106/48 L Pulse Oximetry 100 05/04/21 08:02 05/04/21 08:57 05/04/21 10:15 Temperature Pulse Rate 88 92 Respiratory Rate Blood Pressure 91/48 L Pulse Oximetry 99 05/04/21 10:50 05/04/21 10:51 05/04/21 12:00 Temperature Pulse Rate 81 Respiratory Rate Blood Pressure 102/48 L 93/61 L Pulse Oximetry 05/04/21 14:06 Temperature 98.9 F Pulse Rate 69 Respiratory Rate 20 Blood Pressure 101/62 Pulse Oximetry 99 Intake/Output Intake/Output: Intake & Output 05/01/21 05/02/21 05/03/21 05/04/21 23:59 23:59 23:59 23:59 Intake Total 511 630 730 Output Total 325 Balance 186 630 730 Meds/Results Medications: Active Medications Generic Name Dose Route Start Last Admin Trade Name Freq PRN Reason Stop Dose Admin Metoprolol Succinate 200 mg 05/03/21 09:00 05/04/21 08:57 Metoprolol Succinate Ext Rel 100 Mg Tabcr PO 200 mg DAILY MEHRAN Administration Ondansetron HCl 4 mg 05/02/21 23:57 05/03/21 00:08 Ondansetron Inj 4 Mg/2 Ml Vial IV PUSH 4 mg Q4H PRN Administration Nausea And Vomiting Pantoprazole Sodium 20 mg 05/04/21 09:00 05/04/21 08:56 Pantoprazole Sod Sesquihydrate 20 Mg Tab PO 20 mg QAM MEHRAN Administration Vitamin D 5,000 units 05/03/21 09:00 05/04/21 08:57 Cholecalciferol 1,000 Units Tablet PO 5,000 units DAILY MEHRAN Administration Radiology Results: ITS Impressions Abdomen/Pelvis CT 05/02/21 11:49 IMPRESSION: 1. Terminal ileal active bleeding site identified. Diffuse colonic fluid, blood/diarrhea. 2. Distended right renal pelvis and mild caliectasis without obstructing etiology identified. 3. 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 4. Right-sided predominant cardiomegaly. Intraventricular pacer in position. 5. Heterogeneous liver enhancement proba
[2021-05-05] VITALS (14 sets, daily range): BP systolic 93–125; BP diastolic 50–63; PULSE 62–97; RESP 14–18; TEMP 36–36.6; O2SAT 94–100
[2021-05-05 03:33] LABS: Mean Corpuscular Hemoglobin 29.6 pg (26-34); Mean Corpuscular Volume 92.6 fl (80-100); Mean Platelet Volume 9.7 fl (7.4-10.4); Platelet Count Result 149 k/mm3 (150-375); Red Cell Distribution Width 14.6 % (11.5-14.5)
[2021-05-05 03:50] LABS: Anion Gap 5 mmol/L (8-16); Blood Urea Nitrogen 18 mg/dL (7-17); Calcium 8.6 mg/dL (8.4-10.2); Carbon Dioxide 24 mmol/L (22-30); Chloride 110 mmol/L (98-107); Estimated CRCL calculation 53 ml/min; Estimated Glomerular Filt Rate > 60; Glucose 112 mg/dL (65-105); Potassium 3.5 mmol/L (3.4-5.0); Sodium 139 mmol/L (137-145)
[2021-05-05] MEDS: CHOLECALCIFEROL 1,000 UNITS TABLET 5000 UNITS PO (09:28)
[2021-05-05] MEDS: PANTOPRAZOLE SOD SESQUIHYDRATE 20 MG TAB PO (09:28)
[2021-05-05] MEDS: SODIUM CHLORIDE 0.9% IV 250 ML 30 ML IV CONT (10:40)
--- NOTE | 2021-05-05 11:32 | PM.IMPN ---
Progress Note: A&P Assessment and Plan (1) Acute GI bleeding: Code(s): K92.2 - Gastrointestinal hemorrhage, unspecified Status: Acute Assessment and Plan: Presented with dark red blood in stool. CT abdomen/ pelvis at presentation identified site of active bleeding at terminal ileum with suspected colonic blood and scattered diverticulosis. She underwent EGD and colonoscopy by Dr. Verma on 05/03. 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 This was clipped. Appreciate gastroenterology consultation monitor clinically Holding warfarin and aspirin (2) Acute blood loss anemia: Code(s): D62 - Acute posthemorrhagic anemia Status: Acute Assessment and Plan: Secondary to GI bleed as above. Hemoglobin 13.0 at presentation with steady decline down to 8.0 today. She is symptomatic with dizziness and lightheadedness Will transfuse 1 unit pRBC given continued decline in hemoglobin in symptomatic patient Repeat H&H 1 hour following transfusion. Continue to monitor H&H q6h to ensure remaining stable. (3) Chronic a-fib: Code(s): I48.20 - Chronic atrial fibrillation, unspecified Status: Acute Assessment and Plan: Rate is controlled. 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 She received vitamin K prior to EGD and colonoscopy and INR was 1.2. Hold warfarin. Continue to hold for 5 days per GI recommendations. resume on 05/09/2021. (5) Gastritis: Code(s): K29.70 - Gastritis, unspecified, without bleeding Status: Acute Assessment and Plan: Evident on EGD with no evidence of bleeding. Started on daily protonix (6) Hypotension: Code(s): I95.9 - Hypotension, unspecified Status: Acute Assessment and Plan: BP has been soft, likely secondary to hypovolemia given blood loss. Orthostatics negative. Metoprolol succinate on hold Monitor BP trends closely. Anticipate improvement following transfusion. Fall precautions in place Subjective Date/time seen: 05/05/21 11:32 Interval history: Date of service: 05/05/2021 Federica Rico is an 85-year-old female with a history of chronic atrial fibrillation on warfarin, mitral valve regurgitation, and breast cancer who is seen in follow-up for GI bleeding. She continues to endorse lightheadedness, especially with ambulation. Dizziness has improved and she states she no longer feels as though the room was spinning. She had a soft, formed bowel movement today without any blood. She had some faint abdominal cramping, but this has improved significantly. She has been able to ambulate with assistance but feels much weaker than normal. She denies urinary symptoms. Denies shortness of breath chest pain or palpitations. Her appetite has been good. Review of Systems Review of Systems: All systems reviewed & are unremarkable except as noted in HPI and below Exam Narrative: Exam Narrative: Ms Rico is a well-nourished, well-appearing 85-year-old female who is lying semi recumbent in bed. She appears comfortable and is in NARD. Neuro: awake, alert and oriented x4, speech clear, no focal neuro deficits noted HEENMT: normocephalic, atraumatic, EOMI, sclerae anicteric, moist oral mucosa Respiratory: clear to auscultation bilaterally, nonlabored breathing Cardio: regular rate, regular rhythm with S1-S2 Abdomen: nondistended, normoactive bowel sounds, soft, nontender to palpation, no rigidity or guarding Extremities: no edema, erythema, cyanosis, clubbing, or tenderness to palpation, DP pulses 2+ bilaterally Skin: no rashes or lesions, warm and dry Psych: appropriate mood and affect, judgment and insight intact Objective Data
--- NOTE | 2021-05-05 14:34 | PC.NURSE ---
Patient requested that her left arm be used for bp's despite limb alert. Mastectomy was 30 years ago.
[2021-05-05 16:08] LABS: Hematocrit 29.2 % (37.0-47.0); Hemoglobin 9.5 g/dL (12.0-15.0)
[2021-05-05 22:40] LABS: Hematocrit 28.3 % (37.0-47.0); Hemoglobin 9.1 g/dL (12.0-15.0)
[2021-05-06] VITALS: PULSE 89
[2021-05-06 04:00] VITALS: PULSE 100
[2021-05-06 05:38] VITALS: BP 101/61; PULSE 94; RESP 16; TEMP 36.3; O2SAT 100
[2021-05-06 05:57] LABS: Hematocrit 28.5 % (37.0-47.0); Hemoglobin 9.2 g/dL (12.0-15.0)
[2021-05-06 06:08] LABS: Anion Gap 3 mmol/L (8-16); Blood Urea Nitrogen 13 mg/dL (7-17); Calcium 8.1 mg/dL (8.4-10.2); Carbon Dioxide 26 mmol/L (22-30); Chloride 111 mmol/L (98-107); Estimated CRCL calculation 53 ml/min; Estimated Glomerular Filt Rate > 60; Glucose 91 mg/dL (65-105); Potassium 3.7 mmol/L (3.4-5.0); Sodium 140 mmol/L (137-145)
[2021-05-06 08:00] VITALS: PULSE 99
[2021-05-06] MEDS: CHOLECALCIFEROL 1,000 UNITS TABLET 5000 UNITS PO (08:55)
[2021-05-06] MEDS: PANTOPRAZOLE SOD SESQUIHYDRATE 20 MG TAB PO (08:56)
--- NOTE | 2021-05-06 11:22 | PM.DS ---
DS: Admitting Diagnosis Admitting Diagnosis Admitting Diagnosis: GI bleed DS: Discharge Diagnosis Discharge Diagnosis (1) Acute GI bleeding: Code(s): K92.2 - Gastrointestinal hemorrhage, unspecified Status: Acute Assessment and Plan: Presented with dark red blood in stool. CT abdomen/ pelvis at presentation identified site of active bleeding at terminal ileum with suspected colonic blood and scattered diverticulosis. She underwent EGD and colonoscopy by Dr. Verma on 05/03. 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 This was clipped and bleeding resolved. She will hold warfarin and aspirin for 5 days. (2) Acute blood loss anemia: Code(s): D62 - Acute posthemorrhagic anemia Status: Acute Assessment and Plan: Secondary to GI bleed as above. Hemoglobin 13.0 at presentation with steady decline down to 8.0. She was symptomatic with dizziness and lightheadedness. She was transfused 1 unit pRBC on 05/05/2021. H&H stabilized following in her symptoms improved significantly. She will repeat H&H as an outpatient in 1 week to ensure remaining stable. (3) Chronic a-fib: Code(s): I48.20 - Chronic atrial fibrillation, unspecified Status: Acute Assessment and Plan: Rate remained controlled. Continue metoprolol. Resume warfarin on 05/09/2021 (4) Chronic anticoagulation: Code(s): Z79.01 - [facility] (current) use of anticoagulants Status: Acute Assessment and Plan: On warfarin given chronic AFib. She received vitamin K prior to EGD and colonoscopy to bring down INR to 1.2. Warfarin was held for 5 days in light of GI bleed. Will be continued on 05/09/2021 is she should obtain repeat INR test in 1 week. (5) Gastritis: Code(s): K29.70 - Gastritis, unspecified, without bleeding Status: Acute Assessment and Plan: Evident on EGD with no evidence of bleeding. Started on daily protonix (6) Hypotension: Code(s): I95.9 - Hypotension, unspecified Status: Acute Assessment and Plan: BP was slightly soft, likely secondary to hypovolemia given blood loss. Orthostatics negative. Metoprolol succinate held briefly. BP improved following transfusion. Continue metoprolol. Encouraged BP monitoring at home. DS: Summary Hospital Course Reason for hospitalization: GI bleed Hospital Course: Date of admission: 05/02/21 Date of discharge: 05/06/21 Federica Rico is an 85-year-old female with a history of chronic atrial fibrillation on warfarin, mitral valve regurgitation, and breast cancer who presented to the emergency department on 05/02/2021 with complaints of several episodes of dark red blood in stool. She noted large amounts of bleeding and was concerned that she lost a lot of blood. Upon presentation to the emergency department, her vital signs were stable, white count was 5.9, hgb 13.0, hct 40.6, platelets 214, BMP unremarkable, and CT a/p showed terminal ileal active bleeding site identified with diffuse colonic fluid, blood/diarrhea with scattered colonic and small bowel diverticulosis. She was admitted to the hospitalist service for further evaluation and management was seen in consultation by Gastroenterology. Please see above for further details. She was found to have a bleeding diverticulum which was source of her GI bleed and anemia. This was clipped, and after blood transfusion her H&H stabilized and symptoms improved. She was feeling much better and requested discharge home. Given her overall improvement, she was determined to no longer require inpatient care and was felt to be stable for discharge. We discussed worrisome signs and symptoms for which to return and she was educated on her medications. She was discharged in hemodynamically stable condition on 05/06/2021. Status at Discharge Functional status at discharge: independent ambulation Overall status at di
== END 2021-05-06 13:20 | disposition home or self-care (01) | DRG 378 ==
LOC: ANHED 10:59 → ANH3MED 13:41
PROVIDERS: Internal Medicine Gastroenterology; Nurse Practitioner; Physician Assistant; Admitting Provider Family Medicine; Emergency Provider Emergency Medicine; PCP Internal Medicine; Visit Provider Internal Medicine
PROC: 0DJ08ZZ Inspection of Upper Intestinal Tract, Via Natural or Artificial Opening Endoscopic (ICD-10-PCS; CPT 43235; principal; 2021-05-03 11:45)
DX: K57.11 Diverticulosis of small intestine without perforation or abscess with bleeding (principal); D62 Acute posthemorrhagic anemia; I48.20 Chronic atrial fibrillation, unspecified; K29.00 Acute gastritis without bleeding; D12.2 Benign neoplasm of ascending colon; D12.0 Benign neoplasm of cecum; D12.4 Benign neoplasm of descending colon; D12.5 Benign neoplasm of sigmoid colon; K64.8 Other hemorrhoids; I34.0 Nonrheumatic mitral (valve) insufficiency; I95.9 Hypotension, unspecified; M81.0 Age-related osteoporosis without current pathological fracture; Z79.01 Long term (current) use of anticoagulants; Z85.3 Personal history of malignant neoplasm of breast; Z95.0 Presence of cardiac pacemaker; Z90.710 Acquired absence of both cervix and uterus
CPT/HCPCS: 36415; 36430; 74177; 80048; 80053; 83605; 83735; 84443; 85014; 85018; 85025; 85027; 85610; 85730; 86850; 86880; 86900; 86901; 86902; 86922; 87081; 88305; 93005; 96365; 96375; 99285; A9270; G0378; J2001; J2370; J2405; J2704; J3430; J7050; J7120; P9016; Q9967

== ENCOUNTER 2022-06-15 10:21 | Outpatient (CLI) | payer MEDICARE, SELFPAY ==
--- NOTE | ~2022-06-15 | MM_ITS ---
EXAMINATION: MM screening [facility] BI w mehrdad HISTORY: Screening mammogram TECHNIQUE: Craniocaudal and mediolateral oblique 3-D tomosynthesis images were obtained and synthetic 2-D images were generated. CAD analysis was submitted and interpreted. COMPARISON: 04/11/2021, 11/18/2019 bilateral screening mammogram examinations BREAST PARENCHYMAL COMPOSITION: The breasts are extremely dense, which lowers the sensitivity of mamm ography. FINDINGS: Numerous status post left mastectomy with trans flap reconstruction. Benign calcifications of right breast. There is no evidence of suspicious mass, calcification, or architectural distortion to suggest malignancy in either breast. There has been no suspicious interval change. IMPRESSION: 1. Status post left mastectomy with trans flap reconstruction. No mammographic evidence of malignancy . 2. Recommend routine screening mammography in one year. BI-RADS Category 2: Benign finding(s). Reviewed, dictated and finalized at location A. IMPRESSION: 1. Status post left mastectomy with trans flap reconstruction. No mammographic evidence of malignancy. 2. Recommend routine screening mammography in one year. BI-RADS Category 2: Benign finding(s).
== END 2022-06-15 10:22 | disposition home or self-care (01) ==
LOC: ANHIMG 10:22
PROVIDERS: PCP Internal Medicine; Visit Provider Internal Medicine
DX: Z12.31 Encounter for screening mammogram for malignant neoplasm of breast (principal)
CPT/HCPCS: 77063; 77067

== ENCOUNTER 2023-08-22 10:16 | Outpatient (CLI) | payer MEDICARE, SELFPAY ==
--- NOTE | ~2023-08-22 | MM_ITS ---
EXAMINATION: MM screening [facility] BI w mehrdad HISTORY: Screening mammogram TECHNIQUE: Craniocaudal and mediolateral oblique 3-D tomosynthesis images were obtained and synthetic 2-D images were generated. CAD analysis was submitted and interpreted. COMPARISON: 06/15/2022, 04/11/2021, 11/18/2019 bilateral screening mammogram examinations BREAST PARENCHYMAL COMPOSITION: The breasts are heterogeneously dense, which may obscure small masses . FINDINGS: Status post left mastectomy with TRAM flap reconstruction by clinical history. Multiple benign calcifications are noted, primarily on the right. There is no evidence of suspicious mass, calcification, or architectural distortion to suggest malign gissel in either breast. There has been no suspicious interval change. IMPRESSION: 1. Status post left mastectomy and TRAM flap reconstruction No mammographic evidence of malignancy. 2. Recommend routine screening mammography in one year. BI-RADS Category 2: Benign finding(s). Reviewed, dictated and finalized at location A. IMPRESSION: 1. Status post left mastectomy and TRAM flap reconstruction No mammographic gloria dence of malignancy. 2. Recommend routine screening mammography in one year. BI-RADS Category 2: Benign finding(s).
== END 2023-08-22 10:17 | disposition home or self-care (01) ==
LOC: ANHIMG 10:18
PROVIDERS: PCP Internal Medicine; Visit Provider Internal Medicine
DX: Z12.31 Encounter for screening mammogram for malignant neoplasm of breast (principal)
CPT/HCPCS: 77063; 77067

== ENCOUNTER 2024-09-01 10:05 | Outpatient (CLI) | payer MEDICARE, SELFPAY ==
--- NOTE | ~2024-09-01 | MM_ITS ---
EXAMINATION: MM screening [facility] BI w mehrdad HISTORY: Screening TECHNIQUE: Craniocaudal and mediolateral oblique 3-D tomosynthesis images were obtained and synthetic 2-D images were generated. CAD analysis was submitted and interpreted. COMPARISON: Comparison to multiple prior studies sequentially, with oldest reviewed study dated 05/18. BREAST PARENCHYMAL COMPOSITION: Not dense: There are scattered areas of fibroglandular density. FINDINGS: There is no evidence of suspicious mass, calcification, or architectural distortion to sugg est malignancy in either breast. There has been no suspicious interval change. IMPRESSION: 1. No mammographic evidence of malignancy. 2. Recommend routine screening mammography in one year. BI-RADS Category 1: Negative Reviewed, dictated and finalized at location B.
== END 2024-09-01 10:06 | disposition home or self-care (01) ==
LOC: ANHIMG 10:09
PROVIDERS: PCP Internal Medicine; Visit Provider Internal Medicine
DX: Z12.31 Encounter for screening mammogram for malignant neoplasm of breast (principal)
CPT/HCPCS: 77063; 77067

== ENCOUNTER 2025-09-20 08:55 | Outpatient (CLI) | payer MEDICARE, SELFPAY ==
--- OUTSIDE RECORDS SUMMARY | 2025-05-28 04:00 | XMS_ITS ---
Author Organization [facility] Address [address] [place] [address] Care Team Providers Care Cleaner Assistant Name Role Phone Migration, Provider Unavailable Unavailable REASON FOR VISIT EMR-Jairo Encounters Encounter Location Date Provider Diagnosis Migrated_Facility 0 0 05/28/2025 Provider Migration Plan Of Treatment No Information Progress Notes * Federica RICODOB:1935 (89 yo F)Acc No.[id number]:05/28/2025 Patient: Federica MORALEZ :1935 A ge:89 Y S ex:Female Address:[address], [address], [place], [address] Subjective: * Chief Complaints: * E MR-Jairo * * Date:
--- NOTE | ~2025-09-20 | MM_ITS ---
EXAMINATION: MM screening [facility] BI w mehrdad HISTORY: Screening TECHNIQUE: Craniocaudal and mediolateral oblique 3-D tomosynthesis images were obtained and synthetic 2-D images were generated. CAD analysis was submitted and interpreted. COMPARISON: Comparison to multiple prior studies sequentially, with oldest reviewed study dated . BREAST PARENCHYMAL COMPOSITION: Dense: The breasts are heterogeneously dense, which may obscure small masses FINDINGS: There is asymmetry of the breast consistent with previous left mastectomy with TRAM flap. There is no evidence of suspicious mass, calcification, or architectural distortion to suggest malignancy in either breast. There has been no suspicious interval change. There are benign right breast calcifications. IMPRESSION: 1. No mammographic evidence of malignancy. 2. Recommend routine screening mammography in one year. BI-RADS Category 2: Benign finding(s). Reviewed, dictated and finalized at location B.
--- OUTSIDE RECORDS SUMMARY | 2025-09-20 09:30 | XMS_ITS | Patient Health Record ---
Author Organization [facility] Address [address] [place] [address] Care Team Providers Care Direct Mail Clerk Name Role Phone Migration, Provider Unavailable Unavailable Reason For Referral No Information Encounters Encounter Location Date Provider Diagnosis Migrated_Facility 0 0 05/28/2025 Provider Migration Migrated_Facility 0 0 05/29/2025 Provider Migration Plan Of Treatment No Information Insurance Providers Payer Name Payer Address Payer Phone Subscriber Number Group Number Insured Name Patient Relationship to Insured Coverage Start Date Coverage End Date [facility] Medicare [address] [place] [id number] Federica Rico Self - patient is the insured [facility] [address] [place] [address] [id number] Federica Rico Self - patient is the insured
--- OUTSIDE RECORDS SUMMARY | 2025-09-20 09:30 | XMS_ITS | Clinical Summary ---
Author Organization [facility] Address [facility] [place] [address] Care Team Providers Care Assistant Scientist Name Role Phone Unavailable Primary Care Provider Unavailabl e Source Comments [facility],non-owned Affiliates and Associated Physician Practices is amultiple site organization consisting of ambulatory clinics and hospital sitesin [place], [place], [place] and [place]. This disclosure is being madepursuant to the Care Everywhere program and may not contain all information available regarding this patient. 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 Gender Identity Not on file Sexual Orientation Not on file Plan of Treatment Health Maintenance Due Date Last Done Comments BONE DENSITY TESTING 1935 MEDICARE AWV 12 MONTHS 1935 DTAP/TDAP/TD VACCINES (1 - Tdap) 1955 PNEUMOCOCCAL VACCINE 50+ (1 of 1 - PCV) 1986 ZOSTER VACCINE (1 of 2) 1986 Respiratory Syncytial Virus (RSV) Vaccine Pt: or over 60 yrs (1 - 1-dose 75+ series) 2011 DEPRESSION SCREENING 11/24/2024 COVID-19 VACCINE (1 - 2023-2 5 season) 2025 INFLUENZA VACCINE (#1) 2025 HEPATITIS B VACCINE Aged Out No longe r eligible based on patient's age to complete this topic HIB VACCINE Aged Out No longer eligi ble based on patient's age to complete this topic HPV VACCINE Aged Out No longer eligi ble based on patient's age to complete this topic MENINGOCOCCAL (Group B) VACC INE SHARED DECISION-MAKING Aged Out No longer eligibl e based on patient's age to complete this topic MENINGOCOCCAL GROUPS A/C/Y/W VACCINE Aged Out No longer eligible b ased on patient's age to complete this topic [place] [address] [facility] Address: [address] [place] [address] MEDICARE [facility] Address: [facility] [address] [place] [address]
--- OUTSIDE RECORDS SUMMARY | 2025-09-20 09:30 | XMS_ITS | Encounter Summary ---
Author Organization [facility] Address [address] [place] [address] [place] [address] Care Team Providers Care Carton Forming Machine Operator Name Role Phone Unavailable Primary Care Provider Unavailabl e Encounter Details Date Type Department Care Team (Late st Contact Info) Description 01/26/2025 Lab Requisition [facility] - DermPath Lab [address] [place] [address] Tory Dan MD [address] [facility] [address] [place] [address] Social History Tobacco Use Types Packs/Day Years Used Date Smoking Tobacco: Never Assessed Comments Unknown Sex and Gender Information Value Date Recorded Sex Assigned at Not on file Legal Sex Female 5:55 AM 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 OPERATOR Gender Identity Not on file Sexual Orientation Not on file documented as of this encounter Plan of Treatment Not on file documented as of this encounter Procedures Procedure Name Priority Date/Time Associated Diagnosis Comments DERMATOPATHOLOGY Routine 01/26/2025 10:5 9 AM TOOL 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 OPERATOR documented in this encounter Results * DERMATOPATHOLOGY (01/26/2025 10:59 AM TOOL 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 OPERATOR) Case Report Dermatopathology Report Case: [id number] Authorizing Provider: Tory Dan MD Collected: 01/26/2025 10:59 AM Ordering Location: [facility] - Received: 01/27/2025 07:06 AM DermPath Lab Pathologist: Lynne Parnell MD Specimen: Skin, left low back 4:04 PM TOOL 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 OPERATOR DERMATOPATHOLOGY LABORATORY Final Diagnosis Specimen A. SKIN, left low back: BASAL CELL CARCINOMA, SUPERFICIAL MULTIFOCAL (C44.519) 4:04 PM [facility]ORY at 1604 TOOL 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 OPERATOR Clinical History [place] Plaque, BCC 4:04 PM [facility]ORY Gross Description Specimen A: Received is one formalin filled container labeled with the patient's name and designated left low back. The specimen consists of a shave biopsy measuring 15x8x1 mm. Jar 0. 4:04 PM [facility] DER[facility]ORY Microscopic Description Specimen A. SKIN, left low back: Attached to the undersurface of the epidermis, there are small aggregates of basaloid cells with a high nuclear to cytoplasmic ratio and peripheral palisading. 4:04 PM [facility] DER[facility] LABORATORY Disclaimer An external and internal positive and negative controls are appropriate for the histochemical, immunohistochemical and immunofluorescence stain(s) in this case (if any), except where stated explicitly. The performance characteristics of the stain(s) cited in this report were developed and its performance characteristic determined by the Dermatopathology Laboratory at [facility], directed by Dr. Kerline Muniz. These tests need not be, and therefore are not, approved by the [place] Food and Drug Administration. The tests are used for clinical purposes. Billing Codes Specimen Charges Stain Charges 61875 1 4:04 PM [facility] D[facility]ORY Embedded Images 4:04 PM [facility] D[facility]ORY Pathology/Cytolo gy TISSUE SPECIMEN FROM SKIN / Unknown 01/26/2025 10:59 AM TOOL 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 OPERATOR 01/27/2025 7:06 AM [facility] us Tory Dan MD LAB - PATHOLOGY/CYTOLOGY ORD ERABLES Final Result DERMATOPATHOLOGY LABORATORY [facility] - Department of Dermatology [address] [place] [address], [facility] [phone] documented in this encounter Visit Diagnoses Not on filedocumented in this encounter
== END 2025-09-20 08:56 | disposition home or self-care (01) ==
LOC: ANHFOHIMG 08:56
PROVIDERS: PCP Internal Medicine; Visit Provider Internal Medicine
DX: Z12.31 Encounter for screening mammogram for malignant neoplasm of breast (principal)
CPT/HCPCS: 77063; 77067